=== PATIENT | male | born 1955 | race Caucasian/White ===

== ENCOUNTER 2020-01-01 13:07 | Day surgery (SDC) | payer MEDICARE, BC ==
[2020-01-01] MEDS: Polymyxin B/Trimethoprim 10 ML Bottle EYERT SCH ×3 (13:06→14:20)
[~2020-01-01 13:07] MED LIST: Cefuroxime 10 MG/ML SYRINGE EYERT SCH; Lidocaine 1% PF 2 ML SDV INJECT SCH; Pilocarpine 4% Ophth Soln 15 ML Bot EYERT SCH
[2020-01-01] MEDS: Brimonidine 0.2% Ophth Soln 5 ML Bottle EYERT SCH ×3 (13:11→14:20)
[2020-01-01] MEDS: Phenylephrine 2.5% Ophth Soln 2 ML Bot EYERT SCH ×5 (13:13→14:00)
--- NOTE | 2020-01-01 13:15 | PCM.PREANE ---
Preanesthetic Assessment - Anesthesia/Transfusion/Family Hx Anesthesia History: Prior Anesthesia Without Reaction Family History of Anesthesia Reaction: No Transfusion History: No Prior Transfusion(s) - Review of Systems General: No Symptoms Pulmonary: Shortness of Breath Cardiovascular: Other (HTN) Gastrointestinal: No Symptoms Neurological: No Symptoms Other: Reports: None - Physical Assessment NPO Status Date: 01/01/20 NPO Status Time: 09:00 (water) Weight: 121.109 kg ASA Class: 2 Mental Status: Alert & Oriented x3 Airway Class: Mallampati = 2 Dentition: Reports: Normal Dentition Thyro-Mental Finger Breadths: 3 Mouth Opening Finger Breadths: 3 ROM/Head Extension: Full Lungs: Clear to Auscultation, Normal Respiratory Effort Cardiovascular: Regular Rate, Regular Rhythm - Allergies Allergies/Adverse Reactions: Allergies Allergy/AdvReac Type Severity Reaction Status Date / Time No Known Allergies Allergy Verified 01/01/20 13:14 - Blood Blood Available: No Product(s) Available: None - Anesthesia Plan Pre-Op Medication Ordered: None - Acknowledgements Anesthesia Type Planned: MAC Pt an Appropriate Candidate for the Planned Anesthesia: Yes Alternatives and Risks of Anesthesia Discussed w Pt/Guardian: Yes Pt/Guardian Understands and Agrees with Anesthesia Plan: Yes PreAnesthesia Questionnaire - CURRENT (IN HOUSE) MEDS Current Meds: Current Medications Brimonidine Tartrate (Alphagan 0.2% Ophth Soln) 0 ml EYERT ASDIRECTED DEIDRA Stop: 01/01/20 18:00 Cefuroxime Sodium (Zinacef) 0 mg EYERT ASDIRECTED DEIDRA Stop: 01/01/20 18:00 Lidocaine HCl (Xylocaine-Mpf 1%) 0 ml INJECT ASDIRECTED DEIDRA Stop: 01/01/20 18:00 Phenylephrine HCl (Caleb-Synephrine 2.5% Ophth Soln) 0 ml EYERT ASDIRECTED DEIDRA Stop: 01/01/20 18:00 Pilocarpine HCl (Pilocar 4% Ophth Soln) 0 ml EYERT ASDIRECTED DEIDRA Stop: 01/01/20 18:00 Polymyxin/Trimethoprim Sulfate (Polytrim Ophth Soln) 0 ml EYERT ASDIRECTED DEIDRA Stop: 01/01/20 18:00 Tetracaine HCl (Tetracaine 0.5% Steri-Unit Suzette) 0 ml EYEBOTH ASDIRECTED DEIDRA Stop: 01/01/20 18:00 Tropicamide (Mydriacyl 1% Ophth Soln) 0 ml EYERT ASDIRECTED DEIDRA Stop: 01/01/20 18:00
[2020-01-01] MEDS: Tropicamide 1% Ophth Soln 15 ML Bottle EYERT SCH ×4 (13:16→13:48)
[2020-01-01] MEDS: Tetracaine HCl/PF 0.5% 4 ML Bottle EYEBOTH SCH ×2 (13:53→14:07)
--- NOTE | 2020-01-01 14:23 | PCM48HPAN ---
Post Anesthesia Note - EVALUATION WITHIN 48HRS OF ANESTHETIC Vital Signs in Normal Range: Yes Patient Participated in Evaluation: Yes Respiratory Function Stable: Yes Airway Patent: Yes Cardiovascular Function Stable: Yes Hydration Status Stable: Yes Pain Control Satisfactory: Yes Nausea and Vomiting Control Satisfactory: Yes Mental Status Recovered: Yes Vital Signs: Last Vital Signs Temp 98.0 F 01/01/20 13:16 Pulse 104 H 01/01/20 13:16 Resp 16 01/01/20 13:16 BP 128/61 01/01/20 13:16 Pulse Ox 91 L 01/01/20 13:16 Post procedure 123/83, 94, 95%, RR14
== END 2020-01-01 14:41 | disposition home or self-care (01) ==
LOC: JD.SDS 13:07
PROVIDERS: ATTEND Ophthalmology
DX: H25.813 Combined forms of age-related cataract, bilateral (principal); H02.834 Dermatochalasis of left upper eyelid; H02.831 Dermatochalasis of right upper eyelid; H57.813 Brow ptosis, bilateral; E78.00 Pure hypercholesterolemia, unspecified; F17.210 Nicotine dependence, cigarettes, uncomplicated; I10 Essential (primary) hypertension; Z98.890 Other specified postprocedural states; Z79.899 Other long term (current) drug therapy
CPT/HCPCS: 66984; C1780; J0697; J2001

== ENCOUNTER 2020-01-22 10:20 | Day surgery (SDC) | payer MEDICARE, BC ==
[~2020-01-22 10:20] MED LIST changes: +Cefuroxime 10 MG/ML SYRINGE EYELF SCH; -Cefuroxime 10 MG/ML SYRINGE EYERT SCH; +Pilocarpine 4% Ophth Soln 15 ML Bot EYELF SCH; -Pilocarpine 4% Ophth Soln 15 ML Bot EYERT SCH
[2020-01-22] MEDS: Polymyxin B/Trimethoprim 10 ML Bottle EYELF SCH ×3 (10:23→12:57)
[2020-01-22] MEDS: Brimonidine 0.2% Ophth Soln 5 ML Bottle EYELF SCH ×3 (10:28→11:43)
--- NOTE | 2020-01-22 10:30 | PCM.PREANE ---
Preanesthetic Assessment - Anesthesia/Transfusion/Family Hx Anesthesia History: Prior Anesthesia Without Reaction Family History of Anesthesia Reaction: No Transfusion History: No Prior Transfusion(s) - Review of Systems General: No Symptoms Pulmonary: No Symptoms Cardiovascular: No Symptoms Gastrointestinal: No Symptoms Neurological: No Symptoms Other: Reports: None - Physical Assessment NPO Status Date: 01/21/20 NPO Status Time: 19:00 Vital Signs: Last Vital Signs Temp 37.1 C 01/22/20 10:10 Pulse 104 H 01/22/20 10:10 Resp 20 01/22/20 10:10 BP 122/67 01/22/20 10:10 Pulse Ox 94 L 01/22/20 10:10 Height: 1.83 m Weight: 122.47 kg ASA Class: 2 Mental Status: Alert & Oriented x3 Airway Class: Mallampati = 2 Dentition: Reports: Normal Dentition Thyro-Mental Finger Breadths: 3 Mouth Opening Finger Breadths: 3 ROM/Head Extension: Full Lungs: Clear to Auscultation, Normal Respiratory Effort Cardiovascular: Regular Rate, Regular Rhythm - Allergies Allergies/Adverse Reactions: Allergies Allergy/AdvReac Type Severity Reaction Status Date / Time No Known Allergies Allergy Verified 01/21/20 12:19 - Acknowledgements Anesthesia Type Planned: MAC Pt an Appropriate Candidate for the Planned Anesthesia: Yes Alternatives and Risks of Anesthesia Discussed w Pt/Guardian: Yes Pt/Guardian Understands and Agrees with Anesthesia Plan: Yes PreAnesthesia Questionnaire HEENT History: Reports: Cataract Cardiovascular History: Reports: High Cholesterol, Hypertension, SOB on Exertion Gastrointestinal History: Reports: None Genitourinary History: Reports: None Musculoskeletal History: Reports: Arthritis Psychiatric History: Reports: Anxiety Endocrine/Metabolic History: Reports: None - Past Surgical History HEENT Surgical History: Reports: Cataract Surgery, Tonsillectomy GI Surgical History: Reports: Hernia, Inguinal - SUBSTANCE USE Tobacco Use Status *Q: Current Every Day Tobacco User - HOME MEDS Home Medications: Home Meds Cyclobenzaprine [Flexeril] 10 mg PO TID 01/01/20 [History] Ezetimibe [Zetia] 10 mg PO DAILY 01/01/20 [History] Furosemide [Lasix] 40 mg PO DAILY 01/01/20 [History] Losartan [Cozaar] 50 mg PO DAILY 01/01/20 [History] Rosuvastatin Calcium 20 mg PO DAILY 01/01/20 [History] amLODIPine [Norvasc] 5 mg PO DAILY 01/01/20 [History] traZODone HCl [Trazodone HCl] 100 mg PO BEDTIME 01/01/20 [History] - CURRENT (IN HOUSE) MEDS Current Meds: Current Medications Brimonidine Tartrate (Alphagan 0.2% Ophth Soln) 0 ml EYELF ASDIRECTED DEIDRA Stop: 01/22/20 18:00 Cefuroxime Sodium (Zinacef) 0 mg EYELF ASDIRECTED DEIDRA Stop: 01/22/20 18:00 Lidocaine HCl (Xylocaine-Mpf 1%) 0 ml INJECT ASDIRECTED DEIDRA Stop: 01/22/20 18:00 Phenylephrine HCl (Caleb-Synephrine 2.5% Ophth Soln) 0 ml EYELF ASDIRECTED DEIDRA Stop: 01/22/20 18:00 Pilocarpine HCl (Pilocar 4% Ophth Soln) 0 ml EYELF ASDIRECTED DEIDRA Stop: 01/22/20 18:00 Polymyxin/Trimethoprim Sulfate (Polytrim Ophth Soln) 0 ml EYELF ASDIRECTED DEIDRA Stop: 01/22/20 18:00 Last Admin: 01/22/20 10:23 Dose: 1 drop Documented by: Tetracaine HCl (Tetracaine 0.5% Steri-Unit Suzette) 0 ml EYEBOTH ASDIRECTED DEIDRA Stop: 01/22/20 18:00 Tropicamide (Mydriacyl 1% Ophth Soln) 0 ml EYELF ASDIRECTED DEIDRA Stop: 01/22/20 18:00
[2020-01-22] MEDS: Phenylephrine 2.5% Ophth Soln 2 ML Bot EYELF SCH ×5 (10:33→11:24)
[2020-01-22] MEDS: Tropicamide 1% Ophth Soln 15 ML Bottle EYELF SCH ×4 (10:38→11:11)
[2020-01-22] MEDS: Tetracaine HCl/PF 0.5% 4 ML Bottle EYEBOTH SCH ×4 (11:14→11:34)
--- NOTE | 2020-01-22 11:43 | PCM48HPAN ---
Post Anesthesia Note - EVALUATION WITHIN 48HRS OF ANESTHETIC Vital Signs in Normal Range: Yes Patient Participated in Evaluation: Yes Respiratory Function Stable: Yes Airway Patent: Yes Cardiovascular Function Stable: Yes Hydration Status Stable: Yes Pain Control Satisfactory: Yes Nausea and Vomiting Control Satisfactory: Yes Mental Status Recovered: Yes Vital Signs: Last Vital Signs Temp 37.1 C 01/22/20 10:10 Pulse 104 H 01/22/20 10:10 Resp 20 01/22/20 10:10 BP 122/67 01/22/20 10:10 Pulse Ox 94 L 01/22/20 10:10
== END 2020-01-22 12:03 | disposition home or self-care (01) ==
LOC: JD.SDS 10:20
PROVIDERS: ATTEND Ophthalmology
DX: H25.812 Combined forms of age-related cataract, left eye (principal); H02.834 Dermatochalasis of left upper eyelid; H57.813 Brow ptosis, bilateral; H02.831 Dermatochalasis of right upper eyelid; E78.00 Pure hypercholesterolemia, unspecified; I10 Essential (primary) hypertension; Z98.890 Other specified postprocedural states; Z79.899 Other long term (current) drug therapy; Z96.1 Presence of intraocular lens
CPT/HCPCS: 66984; C1780; J0697; J2001

== ENCOUNTER 2020-12-29 06:50 | Day surgery (SDC) | payer MEDICARE, BC ==
[~2020-12-29 06:50] MED LIST changes: +Acetaminophen 325 MG Tab PO SCH; -Cefuroxime 10 MG/ML SYRINGE EYELF SCH; +Lactated Ringers 1,000 ML IV SCH; -Lidocaine 1% PF 2 ML SDV INJECT SCH; +Lidocaine 1%/Sod Bicarbonate in NS 8.4% 1 ML Syringe IDERM PRN; +Morphine 8 MG, EPINEPHrine 0.3 MG, Cefuroxime 750 MG, Ketorolac 30 MG, Sodium Chloride ... PRN; -Pilocarpine 4% Ophth Soln 15 ML Bot EYELF SCH; +Pregabalin 25 MG Cap PO SCH; +Sodium Chloride 0.9% 10 ML Syringe FLUSH PRN; +oxyCODONE ER 10 MG TAB.ER PO SCH
[2020-12-29] MEDS ORDERED: Albuterol 0.083% 2.5 MG/3 ML Neb Soln NEB SCH (07:13)
--- NOTE | 2020-12-29 07:20 | PCM.PREANE ---
Preanesthetic Assessment - Anesthesia/Transfusion/Family Hx Anesthesia History: Prior Anesthesia Without Reaction Family History of Anesthesia Reaction: No Transfusion History: No Prior Transfusion(s) - Review of Systems General: Other (obesity wit BMI 38, drinks 4 shots per day) Pulmonary: Other (current smoker, smoked this am, albuterol neb treatment preop) Cardiovascular: Other (HTN, denies any cp) Gastrointestinal: No Symptoms Neurological: No Symptoms Other: Reports: Diabetes (type 2, on oral agents) - Physical Assessment NPO Status Date: 12/28/20 NPO Status Time: 19:00 Weight: 126 kg ASA Class: 2 Mental Status: Alert & Oriented x3 Airway Class: Mallampati = 2 Dentition: Reports: Normal Dentition Thyro-Mental Finger Breadths: 3 Mouth Opening Finger Breadths: 3 ROM/Head Extension: Full Lungs: Clear to Auscultation, Normal Respiratory Effort Cardiovascular: Regular Rate, Regular Rhythm - Imaging/EKG Impressions: sr with probable right vent hypertrophy cxr mild cardiomagaly EF 60-65% 01/03 - Allergies Allergies/Adverse Reactions: Allergies Allergy/AdvReac Type Severity Reaction Status Date / Time No Known Allergies Allergy Verified 01/21/20 12:19 - Blood Blood Available: No Product(s) Available: None - Anesthesia Plan Pre-Op Medication Ordered: None - Acknowledgements Anesthesia Type Planned: Spinal Pt an Appropriate Candidate for the Planned Anesthesia: Yes Alternatives and Risks of Anesthesia Discussed w Pt/Guardian: Yes Pt/Guardian Understands and Agrees with Anesthesia Plan: Yes PreAnesthesia Questionnaire HEENT History: Reports: Cataract Cardiovascular History: Reports: High Cholesterol, Hypertension, SOB on Exertion Gastrointestinal History: Reports: None Genitourinary History: Reports: None Musculoskeletal History: Reports: Arthritis Psychiatric History: Reports: Anxiety Endocrine/Metabolic History: Reports: None - Past Surgical History HEENT Surgical History: Reports: Cataract Surgery, Tonsillectomy GI Surgical History: Reports: Hernia, Inguinal - HOME MEDS Home Medications: Home Meds Cyclobenzaprine [Flexeril] 10 mg PO TID 01/01/20 [History] Ezetimibe [Zetia] 10 mg PO DAILY 01/01/20 [History] Furosemide [Lasix] 40 mg PO DAILY 01/01/20 [History] Losartan [Cozaar] 50 mg PO DAILY 01/01/20 [History] Rosuvastatin Calcium 20 mg PO DAILY 01/01/20 [History] amLODIPine [Norvasc] 5 mg PO DAILY 01/01/20 [History] traZODone HCl [Trazodone HCl] 100 mg PO BEDTIME 01/01/20 [History] Apixaban [Eliquis] 2.5 mg PO BID #60 tablet 12/29/20 [Rx] oxyCODONE 5 - 10 mg PO Q4H PRN #40 tab 12/29/20 [Rx] - CURRENT (IN HOUSE) MEDS Current Meds: Current Medications Acetaminophen (Acetaminophen 325 Mg Tab) 975 mg PO ONETIME DEIDRA Stop: 12/29/20 14:00 Albuterol (Albuterol 0.083% 2.5 Mg/3 Ml Neb Soln) 2.5 mg NEB ONETIME ONE Stop: 12/29/20 07:14 Morphine Sulfate 8 mg/Epinephrine HCl 0.3 mg/Cefuroxime Sodium 750 mg/Ketorolac Tromethamine 30 mg/Sodium Chloride 7.9 ml 0 mg .XX ASDIRECTED PRN PRN Reason: Pain Stop: 12/29/20 14:00 Lactated Ringer's (Ringers, Lactated) 1,000 mls @ 125 mls/hr IV ASDIRECTED DEIDRA Stop: 12/29/20 23:00 Lidocaine/Sodium Bicarbonate (Lidocaine 1%/Sod Bicarbonate In Ns 8.4% 1 Ml Syringe) 0.25 ml IDERM ONETIME PRN PRN Reason: Prior to IV Start Stop: 12/29/20 18:00 Oxycodone HCl (Oxycodone Er 10 Mg Tab.Er) 10 mg PO ONETIME DEIDRA Stop: 12/29/20 14:00 Pregabalin (Pregabalin 25 Mg Cap) 50 mg PO ONETIME DEIDRA Stop: 12/29/20 14:00 Sodium Chloride (Sodium Chloride 0.9% 10 Ml Syringe) 10 ml FLUSH ASDIRECTED PRN PRN Reason: Keep Vein Open Stop: 12/29/20 18:00
[2020-12-29] MEDS ORDERED: Vancomycin 1 GM SDV ONE (07:23)
[2020-12-29] MEDS ORDERED: ceFAZolin 1 GM Vial ONE (07:30)
[2020-12-29] MEDS ORDERED: fentaNYL 100 MCG/2 ML SDV ONE (07:30)
[2020-12-29] MEDS ORDERED: Propofol 200 MG/20 ML SDV ONE (07:30)
[2020-12-29] MEDS ORDERED: Midazolam 1 MG/ML 2 ML SDV ONE ×2 (07:30→08:11)
[2020-12-29] MEDS ORDERED: EPINEPHrine 1 MG/ML SDV ONE (07:42)
[2020-12-29] MEDS ORDERED: Ropivacaine 0.5% 5 MG/ML 30 ML SDV ONE (07:42)
[2020-12-29] MEDS ORDERED: Lactated Ringers 1,000 ML ONE (08:10)
[2020-12-29] MEDS ORDERED: fentaNYL 100 MCG/2 ML SDV IVPUSH PRN (09:23)
[2020-12-29] MEDS ORDERED: Ondansetron 4 MG/2 ML SDV IVPUSH PRN (09:23)
[2020-12-29] MEDS ORDERED: HYDROmorphone 0.5 MG/0.5 ML Syringe IVPUSH PRN (09:23)
--- NOTE | 2020-12-29 09:52 | PCM.POSTAN ---
POST ANESTHESIA ASSESSMENT - MENTAL STATUS Mental Status: Alert, Oriented - VITAL SIGNS Vital Signs: Last Vital Signs Temp 36.7 C 12/29/20 07:00 Pulse 105 H 12/29/20 07:00 Resp 18 12/29/20 07:00 BP 147/86 H 12/29/20 07:00 Pulse Ox 94 L 12/29/20 07:00 - RESPIRATORY Respiratory Status: Respiratory Rate WNL, Airway Patent, O2 Saturation Stable, Supplemental Oxygen - CARDIOVASCULAR CV Status: Pulse Rate WNL, Blood Pressure Stable - GASTROINTESTINAL GI Status: No Symptoms - PAIN Pain Score: 0 - POST OP HYDRATION Hydration Status: Adequate & Stable
--- NOTE | 2020-12-29 10:46 | PCM.SN.2 ---
- Free Text/Narrative Note: Right selective femoral nerve block at the adductor canal for post-procedure pain control under US guidance requested by Dr. Hall. Date:12/29/20 Time Out:1024 Start:1024 End: 1037 Chart reviewed. Consent signed. Questions answered. Appropriate monitors applied. Time out performed. Right mid-shaft femur identified with ultrasound, scanning medially of femur, the femoral artery in the adductor canal visualized, and the femoral nerve located laterally to the artery. The skin was prepped lateral to the ultrasound probe with chlorahexadine times two. The 21ga 4 insulated block needle was inserted under direct ultrasound guidance into the adductor canal. 25mL of 0.5% ropivacaine with 1:200,000 epinephrine was injected circumferentially around the nerve with intermittent negative aspiration noted. Patient tolerated the procedure well. Sterile technique noted along with sterile gloves, mask, and sterile probe cover. See picture on progress note and vital signs on nurses notes. Block completed in PACU. Lynne Prater CRNA
--- NOTE | 2020-12-29 10:51 | PCM48HPAN ---
Post Anesthesia Note - EVALUATION WITHIN 48HRS OF ANESTHETIC Vital Signs in Normal Range: Yes Patient Participated in Evaluation: Yes Respiratory Function Stable: Yes Airway Patent: Yes Cardiovascular Function Stable: Yes Hydration Status Stable: Yes Pain Control Satisfactory: Yes Nausea and Vomiting Control Satisfactory: Yes Mental Status Recovered: Yes Vital Signs: Last Vital Signs Temp 36.6 C 12/29/20 10:00 Pulse 95 12/29/20 10:00 Resp 19 12/29/20 10:00 BP 129/83 12/29/20 10:00 Pulse Ox 95 12/29/20 10:00
--- NOTE | 2020-12-29 10:54 | CR ---
Right knee: AP and crosstable lateral views of the right knee were obtained. Comparison: Prior right knee CT study of 12/16/20. Knee prosthesis is seen as well as patellar prosthesis. Components appear aligned. Underlying bony structures show nothing acute. Soft tissue air is seen. Minimal vascular calcification is seen. Impression: 1. Satisfactory postop radiographic appearance of recently placed right knee prostheses. Diagnostic code #2
--- NOTE | 2021-01-12 12:53 | PCM.OPNOTE ---
- General Post-Op/Procedure Note Date of Surgery/Procedure: 12/29/20 Operative Procedure(s): right total knee arthroplasty with mac art robotics Pre Op Diagnosis: right knee osteoarthrosis Post-Op Diagnosis: Same Anesthesia Technique: Local, MAC, Spinal Primary Surgeon: Boby Hall Anesthesia Provider: Lynne Prater Florist: Cherelle David Florist: Teresa Daugherty EBL in mLs: 400 Complications: None Condition: Good Free Text/Narrative:: 07/19 9mm 35x10
--- NOTE | 2021-01-13 07:13 | OR ---
DATE OF OPERATION: 12/29/2020 SURGEON: Boby Hall MD OPERATION PERFORMED: Right total knee arthroplasty with [place] Bony robotic. PREOPERATIVE DIAGNOSIS: Right knee osteoarthrosis. POSTOPERATIVE DIAGNOSIS: Right knee osteoarthrosis. ANESTHESIA: Local MAC with spinal. ANESTHESIA PROVIDER: Lynne Prater. ASSISTANTS: Cherelle David PA-C, and Teresa Daugherty LPN ESTIMATED BLOOD LOSS: 400 mL. COMPLICATIONS: None. CONDITION: Stable. IMPLANTS: 1. [place] size 6 press-fit CR femur. 2. Nicol[place] size 5 press-fit tibial base plate. 3. Nicolle size 5, 9 mm CS polyethylene insert. 4. Nicolle size 35 x 10 mm press-fit asymmetric patella. DESCRIPTION OF PROCEDURE: The patient was identified in the preop holding area. Proper site was marked and identified by the surgeon. The patient was taken back to the operating theater, where after adequate anesthesia, the patient's right lower extremity had a nonsterile tourniquet applied and then it was sterilely prepped and draped in the usual sterile fashion. OR time-out was performed. The patient received 2 g IV Ancef. Leg jordan was then applied to the right lower extremity. At this time, the right lower extremity was exsanguinated. Tourniquet was insufflated to 250 mmHg. Standard anterior incision was made. Medial parapatellar arthrotomy was created. Deep fibers of the MCL were raised and anterior fat pad was resected. Attention was turned to the patella. Patella measured 25, it was resected to a 14 for a 35 x 10 mm. Drill holes were then drilled. Attention was then turned to the femur. Two 4.0 Schanz pins were placed intra-incisionally on the femur for the [place] Bony robotic array and then 2 more were placed on the tibia 3 fingerbreadths below the tibial tubercle. The [place] Bony robotic arrays were placed on both the femur and the tibia at this time as well as checkpoints on the femur and tibia. Hip center rotation was then obtained. The medial and lateral malleoli were marked as well as the checkpoints were marked for the [place] Bony robotic plan. The patient's knee was brought to full extension, varus and valgus stresses were applied, and then into 90 degrees of flexion. [place] Bony robotic plan for this patient was then undertaken to match the flexion and extension gaps. A straight saw blade was then brought in. Tibial cut was completed as well as an anterior femoral cut, anterior chamfer cut, and posterior femoral cut. Saw blade was then switched out and the distal femoral cut as well as the posterior chamfer cut was completed. All bony fragments were removed. At this time, medial and lateral menisci were resected as well as any posterior osteophytes. Attention was turned to the tibia. The size 5 trial baseplate was placed on the tibia and a size 6 trial femur was placed on the femur. A size 5, 9 mm trial poly was placed. The patient's knee was brought to full extension and flexion. Varus and valgus stresses were applied, was found to be stable with no instability. No signs of liftoff or loosening on the tibial baseplate. At this time, femoral drill holes were drilled, and the tibia was stamped and drilled in proper rotation. All trial implants were then removed. The size 5 tibial baseplate was impacted into place, size 6 femoral component was impacted into place, and then a size 5, 9 mm CS polyethylene insert was impacted into place. A size 35 x 10 mm press-fit patella was then press-fit into place. The tourniquet was deflated. Bleeders were cauterized. 1 L pulse lavage irrigation with Ancef was irrigated through the knee along with 400 mL Irrisept irrigation. Periarticular injection was completed. Topical tranexamic acid and vancomycin powder were applied. All checkpoints and pins were removed. At this point, a #2 barbed suture was used for closure of the medial parapatellar arthrotomy in flexion. 2- 0 Vicryl and Stratafix were used for subcutaneous closure. Prineo was used for cutaneous closure. 3-0 nylons were used for closure of the pin holes on the tibia. The patient had a sterile soft dressing applied. The patient had an MAURO wrap applied and was sent to PACU in stable condition. The patient tolerated the procedure well. MICKI /[id number]
== END 2020-12-29 13:35 | disposition home or self-care (01) ==
LOC: JD.SDS 06:50
PROVIDERS: ATTEND Orthopaedic Surgery
DX: M17.11 Unilateral primary osteoarthritis, right knee (principal); I10 Essential (primary) hypertension; F17.210 Nicotine dependence, cigarettes, uncomplicated; G89.18 Other acute postprocedural pain; E66.9 Obesity, unspecified; E11.9 Type 2 diabetes mellitus without complications; F41.9 Anxiety disorder, unspecified; E78.00 Pure hypercholesterolemia, unspecified; Z68.38 Body mass index [BMI] 38.0-38.9, adult; Z79.899 Other long term (current) drug therapy; Z98.890 Other specified postprocedural states
CPT/HCPCS: 01402; 73560-26-RT; 73560-RT; 97116-GP; 97161-GP; A9270-GY; C1713; C1776; J0171; J0690; J0697; J1885; J2250; J2270; J2370; J2704; J2795; J3010; J3370; J7120

== ENCOUNTER 2021-03-26 17:51 | Emergency (ER) | payer MEDICARE, BC ==
[2021-03-26] MEDS ORDERED: Sodium Chloride 0.9% 10 ML Syringe FLUSH PRN (18:27)
[2021-03-26] MEDS ORDERED: Sodium Chloride 0.9% 1,000 ML IV ONE (18:28)
[2021-03-26] MEDS ORDERED: LORazepam 2 MG/ML SDV IVPUSH ONE ×2 (19:28→22:52)
[2021-03-26] MEDS ORDERED: Lactated Ringers 1,000 ML IV ONE ×3 (20:12→22:46)
[2021-03-26 20:21] LABS: CORONAVIRUS COVID-19 NAA NEGATIVE (NEGATIVE)
[2021-03-26] MEDS ORDERED: Piperacillin/Tazobactam 4.5 GM in Sodium Chloride 0.9% 100 ML IV ONE (20:29)
[2021-03-26] MEDS: Norepinephrine 4 MG in Dextrose 5% in Water 246 ML IV SCH ×2 (22:40)
[2021-03-26] MEDS ORDERED: LORazepam 2 MG/ML SDV ONE (22:53)
[2021-03-26] MEDS ORDERED: Rocuronium 50 MG/5 ML Vial ONE ×3 (23:05)
[2021-03-26] MEDS ORDERED: Etomidate 2 MG/ML 20 ML SDV IVPUSH ONE (23:05)
[2021-03-26] MEDS ORDERED: propofoL 100 ML ONE (23:09)
[2021-03-26] MEDS ORDERED: propofoL 100 ML IV SCH (23:15)
[2021-03-26] MEDS ORDERED: fentaNYL 2,500 MCG in Sodium Chloride 0.9% 200 ML IV SCH (23:15)
[2021-03-27] MEDS ORDERED: Hydrocortisone Sodium Succinate 100 MG/2 ML SDV IVPUSH ONE (00:58)
[2021-03-27] MEDS: Norepinephrine 4 MG in Dextrose 5% in Water 246 ML IV SCH ×2 (02:34)
== END 2021-03-27 01:40 ==
LOC: SUPCPDRO 17:51 → JD.ED 17:51
DX: A41.9 Sepsis, unspecified organism (principal); R65.20 Severe sepsis without septic shock; N17.9 Acute kidney failure, unspecified; J96.92 Respiratory failure, unspecified with hypercapnia; K85.20 Alcohol induced acute pancreatitis without necrosis or infection; F10.232 Alcohol dependence with withdrawal with perceptual disturbance; M62.82 Rhabdomyolysis; E78.00 Pure hypercholesterolemia, unspecified; I10 Essential (primary) hypertension; R94.31 Abnormal electrocardiogram [ECG] [EKG]; Z79.899 Other long term (current) drug therapy; Z20.822 Contact with and (suspected) exposure to COVID-19
CPT/HCPCS: 0240U; 31500; 36415; 36556; 36600; 70450; 71045; 74176; 76705; 80053; 80307; 81001; 82550; 82553; 82803; 82977; 83605; 83615; 83690; 83735; 85025; 85610; 85730; 86140; 93005; 94660; 96365; 96366; 96367; 96368; 96375; 96376; 99285; J1720; J2060; J2543; J2704; J3010; J3490; J7030; J7050; J7060; J7120

== ENCOUNTER → 2022-07-01 | Day surgery (SDC) | payer MEDICARE, BC ==
[2022-07-01] MEDS: Brimonidine 0.2% Ophth Soln 5 ML Bottle EYELF SCH ×2 (12:38→13:39)
[2022-07-01] MEDS: Tropicamide 1% Ophth Soln 15 ML Bottle EYELF SCH ×3 (12:45→13:10)
[2022-07-01] MEDS: Phenylephrine 2.5% Ophth Soln 2 ML Bot EYELF SCH ×3 (12:45→13:05)
== END ==
LOC: JD.SDS 12:14
PROVIDERS: ATTEND Ophthalmology
DX: H26.492 Other secondary cataract, left eye (principal); H53.8 Other visual disturbances; F17.200 Nicotine dependence, unspecified, uncomplicated; E78.00 Pure hypercholesterolemia, unspecified; I10 Essential (primary) hypertension; Z96.1 Presence of intraocular lens; Z79.899 Other long term (current) drug therapy
CPT/HCPCS: 66821; A9270

== ENCOUNTER 2022-08-18 06:35 | Emergency (ER) | payer MEDICARE, BC ==
[2022-08-18] MEDS ORDERED: Dextrose 5%-Lactated Ringers 1,000 ML IV SCH (06:45)
[2022-08-18] MEDS ORDERED: Diphtheria,Pertussis(Acell),Tetanus Vaccine 0.5 ML Syringe IM ONE (06:50)
[2022-08-18] MEDS ORDERED: Ondansetron 4 MG/2 ML SDV IVPUSH ONE (06:51)
[2022-08-18] MEDS ORDERED: HYDROmorphone 0.5 MG/0.5 ML Syringe IVPUSH ONE (06:52)
[2022-08-18 07:16] LABS: BASOPHILS ABSOLUTE AUTO 0.02 K/mm3 (0.01-0.08); BASOPHILS PERCENT AUTO 0.2 % (0.1-1.2); EOSINOPHILS PERCENT AUTO 0 (0.8-7.0); HEMATOCRIT 37.8 % (40.1-51.0); HEMOGLOBIN 12.3 gm/dl (13.7-17.5); IMMATURE GRAN ABSOLUTE AUTO 0.02 K/mm3 (0.00-0.10); IMMATURE GRAN PERCENT AUTO 0.2 % (<=1.0); LYMPHOCYTES ABSOLUTE AUTO 0.87 K/mm3 (1.32-3.57); LYMPHOCYTES PERCENT AUTO 7.5 % (21.8-53.1); MEAN CORPUSCULAR HEMOGLOBIN 34.4 pg (25.7-32.2); MEAN CORPUSCULAR HGB CONC 32.5 g/dl (32.2-35.5); MEAN CORPUSCULAR VOLUME 105.6 fl (79.0-92.2); MONOCYTES ABSOLUTE AUTO 0.74 K/mm3 (0.30-0.82); MONOCYTES PERCENT AUTO 6.4 % (5.3-12.2); NEUTROPHILS PERCENT AUTO 85.7 % (34.0-67.9); PLATELET COUNT,PLT 172 K/mm3 (163-337); RED BLOOD CELL COUNT 3.58 M/mm3 (4.63-6.08); WHITE BLOOD CELL COUNT,WBC 11.65 K/mm3 (4.23-9.07)
[2022-08-18 07:44] LABS: INR 0.99; PROTHROMBIN TIME 10.6 SECONDS (9.7-12.0)
[2022-08-18 07:46] LABS: PTT,PARTIAL THROMBOPLSTIN TIME 20.2 SECONDS (21.7-31.4)
[2022-08-18 08:12] LABS: A/G RATIO 0.9 (1-2); ALANINE AMINOTRANSFERASE,ALT 33 U/L (16-63); ALBUMIN 3.2 g/dl (3.4-5.0); ALKALINE PHOSPHATASE 100 U/L (46-116); ANION GAP 18.9 (5-15); ASPARTATE AMNIOTRANSFERASE,AST 61 U/L (15-37); BILIRUBIN TOTAL 1.1 mg/dL (0.2-1.0); BLOOD UREA NITROGEN,BUN 17 mg/dL (7-18); BUN/CREATININE RATIO 12.1 (14-18); C-REACTIVE PROTEIN <0.2 mg/dL (<1.0); CALCIUM 8.5 mg/dL (8.5-10.1); CARBON DIOXIDE,CO2 25 mEq/L (21-32); CHLORIDE,CL 103 mEq/L (98-107); CREATININE 1.4 mg/dL (0.7-1.3); EST CRCL DRUG DOSING (CG) 54.66 mL/min; ESTIMATED GFR 54 mL/min (>60); GLUCOSE RANDOM 163 mg/dL (70-99); MAGNESIUM 1.6 mg/dL (1.8-2.4); POTASSIUM,K 3.9 mEq/L (3.5-5.1); PROTEIN TOTAL,TP 6.6 g/dl (6.4-8.2); SODIUM,NA 143 mEq/L (136-145); TROPONIN I HIGH SENSITIVITY 10 pg/mL (<=76)
[2022-08-18 08:19] LABS: CREATINE KINASE,CK 1418 U/L (39-308)
[2022-08-18] MEDS ORDERED: Lactated Ringers 1,000 ML IV ONE (09:01)
== END 2022-08-18 11:35 | disposition home or self-care (01) ==
LOC: JD.ED 06:35
DX: S70.11XA Contusion of right thigh, initial encounter (principal); S00.31XA Abrasion of nose, initial encounter; S00.83XA Contusion of other part of head, initial encounter; E78.00 Pure hypercholesterolemia, unspecified; I10 Essential (primary) hypertension; Z79.899 Other long term (current) drug therapy; W10.9XXA Fall (on) (from) unspecified stairs and steps, initial encounter; Y92.59 Other trade areas as the place of occurrence of the external cause
CPT/HCPCS: 36415; 70450; 70450-26; 72125; 72125-26; 72128; 72128-26; 72131; 72131-26; 72192; 72192-26; 80053; 80307; 82009; 82550; 83605; 83735; 83880; 84484; 85025; 85610; 85730; 86140; 90471; 90715; 96374; 96375; 99284-25; J1170; J2405; J7120; J7121